=== PATIENT | female | born 1990 | race Caucasian/White ===

== ENCOUNTER 2017-01-24 13:52 | Emergency (ER) | payer SELFPAY ==
[~2017-01-24] VITALS: Ht 160 cm; Wt 54.4 kg
[~2017-01-24 13:52] MED LIST: ACETAMINOPHEN325 M1; ACETAMINOPHEN325 M1 PO; ACETAMINOPHEN500 MG PO; ADDERALL 30 MG30 MG; ATIVAN1 MG PO; BACTRIM DS TAB1 EACH PO; BENTYL10 MG PO; BUPRENORPHINE HC8 MG SL; CEPHALEXIN500 M1 PO; CEPHALEXIN500 MG PO; CHILDREN'S CHE1 EAC1 PO; CIPRO250 MG PO; CLINDAMYCIN HC300 MG PO; CLONIDINE HCL0.1 MG PO; DIAZEPAM5 MG PO; DICLOFENAC SODI75 MG PO; DOXYCYCLINE HY100 MG PO; HYDROCODON-ACE1 EA11 PO; IBUPROFEN200 M1 PO; IBUPROFEN600 MG PO; IBUPROFEN800 MG PO; IRON325 M1 PO; KEFLEX500 MG PO; LOMOTIL TABLET1 EACH PO; NAPROSYN500 MG PO; NAPROXEN500 MG; NORCO 5-325 TA1 EACH PO; OXYCODONE HCL5 MG PO; PERCOCET 5-3251 EACH PO; PRENATAL COMPL1 EACH PO; PROMETHAZINE HC25 M1 PO; SEPTRA DS TABL1 EACH PO; SULFAMETHOXAZO1 EAC1 PO; TRAMADOL HCL50 MG PO; TRAZODONE HCL100 MG PO; TRAZODONE HCL50 MG PO; ULTRAM50 MG; ULTRAM50 MG PO; VICODIN 5-3001 EACH PO; VITAMIN D5000 UNIT PO; VYVANSE30 MG PO; ZITHROMAX250 MG PO; ZOFRAN ODT4 MG SL
[2017-01-24] MEDS ORDERED: ZITHROMAX250 MG PO (14:38)
== END 2017-01-24 14:41 | disposition home or self-care (01) ==
LOC: ED 13:52
DX: H66.91 Otitis media, unspecified, right ear (principal); D64.9 Anemia, unspecified; F17.200 Nicotine dependence, unspecified, uncomplicated; Z87.442 Personal history of urinary calculi; Z88.5 Allergy status to narcotic agent; Z88.0 Allergy status to penicillin
CPT/HCPCS: 99283

== ENCOUNTER 2017-10-28 07:19 | Emergency (ER) | payer MEDICAID ==
[~2017-10-28] VITALS: Ht 160 cm; Wt 54.4 kg
== END 2017-10-28 13:15 | disposition home or self-care (01) ==
LOC: ED 07:19
DX: T74.21XA Adult sexual abuse, confirmed, initial encounter (principal); F17.200 Nicotine dependence, unspecified, uncomplicated; Z88.5 Allergy status to narcotic agent; Z88.0 Allergy status to penicillin; Y07.03 Male partner, perpetrator of maltreatment and neglect
CPT/HCPCS: 81001; 84703; 96372; 99283; J0696

== ENCOUNTER 2018-07-16 19:14 | Emergency (ER) | payer OTHER ==
[~2018-07-16] VITALS: Ht 160 cm; Wt 56.7 kg
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
[2018-07-16] MEDS ORDERED: MACROBID 100 M100 MG PO (20:38)
[2018-07-16] MEDS ORDERED: ELIMITE60 GM TOP (20:38)
[2018-07-16] MEDS ORDERED: PYRIDIUM200 MG PO (20:38)
== END 2018-07-16 21:00 | disposition home or self-care (01) ==
LOC: ED 19:14
DX: N39.0 Urinary tract infection, site not specified (principal); D64.9 Anemia, unspecified; F17.200 Nicotine dependence, unspecified, uncomplicated; Z88.5 Allergy status to narcotic agent; Z87.442 Personal history of urinary calculi; Z88.0 Allergy status to penicillin
CPT/HCPCS: 81001; 87077; 87088; 87186; 99283

== ENCOUNTER 2018-08-06 21:59 | Emergency (ER) | payer OTHER ==
[~2018-08-06] VITALS: Ht 160 cm; Wt 60.3 kg
[~2018-08-06 21:59] MED LIST changes: +ELIMITE60 GM TOP; +MACROBID 100 M100 MG PO; +PYRIDIUM200 MG PO
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
[2018-08-06] MEDS ORDERED: TRAZODONE HCL100 MG PO (22:10)
[2018-08-06] MEDS ORDERED: ADDERALL 20 MG20 MG PO (22:10)
[2018-08-06] MEDS ORDERED: LATUDA60 MG PO (22:11)
[2018-08-06] MEDS ORDERED: CLEOCIN HCL300 MG PO (22:53)
== END 2018-08-06 23:01 | disposition home or self-care (01) ==
LOC: ED 21:59
PROC: 0H9CXZZ Drainage of Left Upper Arm Skin, External Approach (ICD-10-PCS; principal; 2018-08-06)
DX: L02.414 Cutaneous abscess of left upper limb (principal); D64.9 Anemia, unspecified; Z87.442 Personal history of urinary calculi; F17.200 Nicotine dependence, unspecified, uncomplicated; Z88.5 Allergy status to narcotic agent; Z88.0 Allergy status to penicillin; Z79.899 Other long term (current) drug therapy
CPT/HCPCS: 10060; 87070; 87075; 87077; 87186; 87205; 99282-25

== ENCOUNTER 2019-06-19 22:49 | Emergency (ER) | payer OTHER ==
[~2019-06-19] VITALS: Ht 160 cm; Wt 63.5 kg
[~2019-06-19 22:49] MED LIST changes: +ADDERALL 20 MG20 MG PO; +CLEOCIN HCL300 MG PO; +LATUDA60 MG PO
[2019-06-19] MEDS ORDERED: BACTRIM DS TAB1 EACH PO (23:55)
== END 2019-06-20 00:06 | disposition home or self-care (01) ==
LOC: ED 22:49
DX: N39.0 Urinary tract infection, site not specified (principal); L02.416 Cutaneous abscess of left lower limb; L02.415 Cutaneous abscess of right lower limb; L02.414 Cutaneous abscess of left upper limb; L02.413 Cutaneous abscess of right upper limb; D64.9 Anemia, unspecified; F17.200 Nicotine dependence, unspecified, uncomplicated; Z88.0 Allergy status to penicillin; Z88.5 Allergy status to narcotic agent; Z79.899 Other long term (current) drug therapy
CPT/HCPCS: 81001; 84703; 99283

== ENCOUNTER 2019-08-02 19:20 | Emergency (ER) | payer OTHER ==
[~2019-08-02] VITALS: Ht 160 cm; Wt 61.2 kg
[2019-08-02] MEDS ORDERED: INDERAL LA60 MG PO (19:56)
[2019-08-02] MEDS ORDERED: KEFLEX500 MG PO (20:51)
[2019-08-02] MEDS ORDERED: PYRIDIUM200 MG PO (20:51)
[2019-08-02] MEDS ORDERED: BACTRIM DS TAB1 EACH PO (20:51)
== END 2019-08-02 21:21 | disposition home or self-care (01) ==
LOC: ED 19:20
DX: N39.0 Urinary tract infection, site not specified (principal); L03.113 Cellulitis of right upper limb; D64.9 Anemia, unspecified; F17.200 Nicotine dependence, unspecified, uncomplicated; Z88.5 Allergy status to narcotic agent; Z88.0 Allergy status to penicillin; Z79.899 Other long term (current) drug therapy
CPT/HCPCS: 81001; 99283; A9270

== ENCOUNTER 2019-08-28 22:23 | Emergency (ER) | payer OTHER ==
[~2019-08-28] VITALS: Ht 160 cm; Wt 61.2 kg
[~2019-08-28 22:23] MED LIST changes: +INDERAL LA60 MG PO
[2019-08-28] MEDS ORDERED: KEFLEX500 MG PO (23:23)
[2019-08-28] MEDS ORDERED: DOXYCYCLINE HY100 MG PO (23:23)
[2019-08-28] MEDS ORDERED: NORCO 5-325 TA1 EACH PO (23:23)
== END 2019-08-28 23:37 | disposition home or self-care (01) ==
LOC: ED 22:23
DX: L02.413 Cutaneous abscess of right upper limb (principal); D64.9 Anemia, unspecified; F17.200 Nicotine dependence, unspecified, uncomplicated; Z88.5 Allergy status to narcotic agent; Z88.0 Allergy status to penicillin; Z79.899 Other long term (current) drug therapy
CPT/HCPCS: 10060; 99283-25; A9270

== ENCOUNTER 2021-07-06 01:05 | Emergency (ER) | payer OTHER ==
[~2021-07-06] VITALS: Ht 160 cm; Wt 66.0 kg
[~2021-07-06 01:05] MED LIST changes: +PRAMIPEXOLE D0.25 MG PO; +QUETIAPINE FUM400 M1 PO; +SEROPHENE50 MG PO; +SEROQUEL400 MG PO; +ZOFRAN4 MG PO
== END 2021-07-06 02:02 | disposition home or self-care (01) ==
LOC: ED 01:05
DX: U07.1 COVID-19 (principal); D64.9 Anemia, unspecified; F17.200 Nicotine dependence, unspecified, uncomplicated; Z88.0 Allergy status to penicillin; Z88.5 Allergy status to narcotic agent
CPT/HCPCS: 99283; C9803; U0003

== ENCOUNTER 2022-08-17 03:19 | Emergency (ER) | payer OTHER ==
[~2022-08-17] VITALS: Ht 160 cm; Wt 77.9 kg
== END 2022-08-17 04:30 | disposition home or self-care (01) ==
LOC: ED 03:19
DX: K04.7 Periapical abscess without sinus (principal); K03.81 Cracked tooth; D64.9 Anemia, unspecified; F17.200 Nicotine dependence, unspecified, uncomplicated; Z88.0 Allergy status to penicillin; Z88.5 Allergy status to narcotic agent
CPT/HCPCS: 96372; 99282; J0696

== ENCOUNTER 2022-10-15 02:52 | Emergency (ER) | payer OTHER ==
[~2022-10-15] VITALS: Ht 160 cm; Wt 77.6 kg
[2022-10-15 05:01] VITALS: BP 145/93
== END 2022-10-15 05:02 | disposition home or self-care (01) ==
LOC: ED 02:52
DX: K42.9 Umbilical hernia without obstruction or gangrene (principal); F17.200 Nicotine dependence, unspecified, uncomplicated; Z88.0 Allergy status to penicillin; Z88.5 Allergy status to narcotic agent
CPT/HCPCS: 74176; 80053; 81001; 83690; 84703; 85025; 99284-25

== ENCOUNTER 2023-01-18 16:12 | Emergency (ER) | payer OTHER ==
[~2023-01-18] VITALS: Ht 160 cm; Wt 77.6 kg
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
[2023-01-18] MEDS ORDERED: CLEOCIN HCL300 MG PO (16:50)
[2023-01-18] MEDS ORDERED: HYDROCODON-ACE1 EA10 PO (16:50)
[2023-01-18 16:56] VITALS: BP 152/90
== END 2023-01-18 16:56 | disposition home or self-care (01) ==
LOC: ED 16:12
DX: K04.7 Periapical abscess without sinus (principal); F17.200 Nicotine dependence, unspecified, uncomplicated; Z88.0 Allergy status to penicillin; Z88.5 Allergy status to narcotic agent
CPT/HCPCS: 99282

== ENCOUNTER 2024-06-17 14:58 | Emergency (ER) | payer OTHER ==
[~2024-06-17] VITALS: Ht 160 cm; Wt 78.1 kg
[~2024-06-17 14:58] MED LIST changes: +HYDROCODON-ACE1 EA10 PO
[2024-06-17 15:40] LABS: BASOPHILS 0.5 % (0-2); EOSINOPHILS 2.4 % (0-6); HEMOGLOBIN 11.9 g/dL (12.0-18.0); LYMPHOCYTES 25.9 % (24-44); MCH 29.5 (27-36); MCV 86.9 fl (81-99); MONOCYTES 5.6 % (0-12); NEUTROPHILS 65.6 % (39-80); PLATELET COUNT 318 K/uL (140-440); RBC 4.03 M/ul (4.3-5.7); RDW 13.8 (10.5-15.0)
[2024-06-17] MEDS ORDERED: KETOROLAC TROMETHAMINE 30 MG/ML VIAL IV ONE (15:45)
[2024-06-17] MEDS ORDERED: SODIUM CHLORIDE 0.9% 1,000 ML IV ONE (15:45)
[2024-06-17 15:58] LABS: ALBUMIN 3.5 g/dL (3.4-5.0); ALBUMIN/GLOBULIN RATIO 0.92 (1.1-2.4); ANION GAP 11.7 (7-21); BILIRUBIN, TOTAL 0.3 ng/dL (0.2-1.0); BUN/CREATININE RATIO 6.84 (6.0-28.6); CREATININE, SERUM 0.73 mg/dL (0.55-1.02); POTASSIUM 3.7 mmol/L (3.5-5.1); PROTEIN, TOTAL 7.3 g/dL (6.4-8.2)
[2024-06-17 16:05] LABS: CALCIUM 8.7 mg/dL (8.5-10.1)
[2024-06-17 17:15] LABS: BILIRUBIN, URINE NEGATIVE (negative); BLOOD/HGB, URINE NEGATIVE (Negative); KETONE, URINE NEGATIVE (Negative); LEUK ESTERASE, URINE NEGATIVE (negative); NITRITE, URINE NEGATIVE (negative)
[2024-06-17 18:30] VITALS: BP 132/78
== END 2024-06-17 18:00 | disposition home or self-care (01) ==
LOC: ED 14:58
PROVIDERS: Emergency Medicine
DX: K42.9 Umbilical hernia without obstruction or gangrene (principal); F17.200 Nicotine dependence, unspecified, uncomplicated; Z88.0 Allergy status to penicillin; Z88.5 Allergy status to narcotic agent
CPT/HCPCS: 36415; 74177; 80053; 81003; 83690; 84703; 85025; 99284-25; J1885; J7030

== ENCOUNTER 2025-04-18 23:50 | Emergency (ER) | payer OTHER ==
[~2025-04-18] VITALS: Ht 160 cm; Wt 81.6 kg
[2025-04-19] MEDS ORDERED: SODIUM CHLORIDE 0.9% 1,000 ML IV ONE (00:15)
[2025-04-19] MEDS ORDERED: HYDROmorphone HCL 1 MG/ML SYR IV PRN (00:15)
[2025-04-19 01:17] LABS: ALT (SGPT) 20.0 U/L (14-59); AST (SGOT) 21.0 U/L (15-37); GLOMERULAR FILTRATION RATE,EST 115.0 mL/min (>60); PROTEIN, TOTAL 7.9 g/dL (6.4-8.2); UREA NITROGEN 5.0 mg/dL (7-18)
[2025-04-19 01:27] LABS: BASOPHILS 0.3 % (0.1-1.2); EOSINOPHILS 1.0 % (0.7-5.8); LYMPHOCYTES 16.3 % (19.3-51.7); MCH 28.9 PG (25.6-32.2); MCHC 33.4 g/dL (32.2-35.5); MCV 86.3 fL (79.4-94.8); MONOCYTES 4.6 % (4.7-12.5); NEUTROPHILS 77.6 % (34.0-71.1); RBC 3.88 M/uL (3.93-5.22)
[2025-04-19] MEDS ORDERED: PROTONIX40 MG PO (02:35)
[2025-04-19] MEDS ORDERED: CARAFATE1 GM PO (02:35)
[2025-04-19] MEDS ORDERED: LIDOCAINE & ANTACID 35 ML BTL PO ONE (02:45)
[2025-04-19] MEDS ORDERED: PANTOPRAZOLE SODIUM 40 MG/10 ML VIAL IV ONE (02:45)
[2025-04-19] MEDS ORDERED: SUCRALFATE 1 GM TAB PO ONE (02:45)
[2025-04-19 03:10] VITALS: BP 141/99
== END 2025-04-19 03:12 | disposition home or self-care (01) ==
LOC: ED 23:50
PROVIDERS: Family Medicine
DX: K29.70 Gastritis, unspecified, without bleeding (principal); F17.200 Nicotine dependence, unspecified, uncomplicated; Z88.0 Allergy status to penicillin; Z88.5 Allergy status to narcotic agent
CPT/HCPCS: 36415; 74177; 80053; 83690; 84703; 85025; 96374; 96375; 99284-25; J1171; J2405; J2470; J7030; Q9967